=== PATIENT | female | born 1950 | race Caucasian/White ===

== ENCOUNTER 2021-08-24 17:00 | Inpatient (IN) | payer MEDICARE, MEDICAID, SELFPAY ==
[2021-08-24] VITALS (18 sets, daily range): BP systolic 102–169; BP diastolic 44–88; PULSE 48–106; RESP 12–23; TEMP 35.9–36.6; O2SAT 88–100
--- NOTE | ~2021-08-24 | CT_ITS ---
EXAMINATION: CT abdomen pelvis w con DATE: 08/24/2021 18:27 INDICATION: epigastric pain TECHNIQUE: Computed tomography (CT) of the abdomen and pelvis was performed with 100 mL Omnipaque-350 intravenous contrast. The dose-length product was 832.58 mGy-cm. COMPARISON: None FINDINGS: Lower thorax: Bibasilar atelectasis/scar Liver: Normal. Biliary/Gallbladder: Gallbladder is absent. No bile duct dilation. Spleen: Normal. Pancreas: No mass or duct dilation. Mild atrophy. Adrenals: 1.7 cm left adrenal mass, hyperdense measuring 90 HU. Kidneys: Punctate calcifications in the bilateral renal fossae, may represent vascular opacification or nonobstructive stones. No mass or hydronephrosis. GI tract: Gastric wall edema. Focal defect in the anterior gastric wall at the junction of the body a nd antrum. No small or large bowel dilation. Normal appendix. Mesentery/Peritoneum: Small volume perisplenic and perihepatic fluid. Inflammatory change in the uppe r mesentery. Small volume free air. Retroperitoneum: No mass. Pelvis: Pelvic organs are within normal limits. Small volume free pelvic fluid. Bones/Soft Tissues: Soft tissues and body wall unremarkable. Additional Findings: None. IMPRESSION: Perforated gastric ulcer, with small volume pneumoperitoneum and free fluid. Indeterminate 1.7 cm lef t adrenal mass, if there is no cancer history consider 12 month follow-up adrenal CT, otherwise recom mend nonemergent, outpatient adrenal CT when the patient's clinical condition permits. Dr. Escalante was aware of the acute findings at the time of this dictation. Reviewed, dictated and finalized at location K. IMPRESSION: Perforated gastric ulcer, with small volume pneumoperitoneum and free fluid. In determinate 1.7 cm left adrenal mass, if there is no cancer history consider 12 month follow-up adrenal CT, otherwise recommend nonemergent, outpatient adrena l CT when the patient's clinical condition permits. Dr. Escalante was aware of the acute findings at the time of this dictation.
--- NOTE | ~2021-08-24 | CT_ITS ---
EXAMINATION: CTA brain carotid DATE: 08/25/2021 13:48 INDICATION: Right hemiparesis. TECHNIQUE: Computed tomographic angiography (CTA) of the head was performed without and with 100 mL O mnipaque-350 intravenous contrast. CTA of the neck was performed with intravenous contrast. Automated exposure control and iterative reconstruction technique were employed. The dose-length product was 1 063.93 mGy-cm. Maximum intensity projection and volume rendered 3D-reconstructions were created by atif grimes technologist on a separate workstation. COMPARISON: Head CT/ FINDINGS: HEAD CTA: There are acute infarcts involving left temporal and parietal lobes. There are scattered ar eas of low attenuation in the cerebral white matter. There is no intracranial hemorrhage or abnormal mass lesion. The ventricles are normal in size. The orbits are normal. The paranasal sinuses are teresita r. There are bilateral mastoidectomies. Right vertebral artery is dominant. There is mild stenosis of distal right vertebral artery. There is mild stenosis of basilar artery. There is no significant satya nosis of the posterior cerebral arteries. There is total occlusion of left internal carotid artery wi th reconstitution in supraclinoid segment. There is no significant stenosis of the anterior cerebral arteries or right middle cerebral artery. Left A1 anterior cerebral artery segment is small. The is n o significant stenosis of left middle cerebral artery. Posterior communicating arteries are not ident ified. There is no aneurysm. NECK CTA: There is mild scarring at the lung apices. There is mild emphysema. There are no pathologic ally enlarged lymph nodes. There is long segment moderate stenosis of right vertebral artery. There i s total occlusion of mid left vertebral artery with reconstitution. There is moderate stenosis of rig ht common carotid artery. There is plaque in the proximal right internal carotid artery. There is 37% stenosis of the proximal right internal carotid artery relative to normal distal artery lumen diamet er (NASCET criteria). There is total occlusion of cervical left internal carotid artery. There is mil d cervical spondylosis. IMPRESSION: 1. 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 2. Mild nonspecific cerebral white matter disease, which likely represents chronic small vessel ische poncho disease. 3. 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 4. Moderate stenosis of right common carotid artery. 5. 37% stenosis of the proximal right internal carotid artery relative to normal distal artery lumen diameter (NASCET criteria). 6. Total occlusion of mid left vertebral artery with reconstitution. 7. Moderate stenosis of right vertebral artery. Reviewed, dictated and finalized at location B. IMPRESSION: 1. 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 2. 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 3. 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 4. Moderate stenosis of right common carotid artery. 5. 37% stenosis of the proximal right internal carotid artery relative to marlys l distal artery lumen diameter (NASCET criteria). 6. Total occlusion of mid left vertebral artery with reconstitution. 7. Moderate stenosis of right vertebral artery.
--- NOTE | ~2021-08-24 | CT_ITS ---
EXAMINATION: CT brain wo con DATE: 08/25/2021 12:01 INDICATION: Right hemiparesis. Neurological changes. TECHNIQUE: Computed tomography (CT) of the head was performed without intravenous contrast. The mA wa s adjusted according to patient size. Iterative reconstruction technique was employed. The dose-lengt h product was 756.67 mGy-cm. COMPARISON: Head CT 03/29/2017 FINDINGS: There is hypoattenuation involving monge matter in left temporal lobe, consistent with acute infarct. There are scattered areas of low attenuation in the cerebral white matter. There is no intr acranial hemorrhage or abnormal mass lesion. The ventricles are normal in size. The paranasal sinuses are clear. The orbits are normal. There are changes of mastoidectomies. IMPRESSION: 1. Acute infarct in left temporal lobe. 2. Mild nonspecific cerebral white matter disease, which likely represents chronic small vessel ische poncho disease. Reviewed, dictated and finalized at location B. IMPRESSION: 1. Acute infarct in left temporal lobe. 2. 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
--- NOTE | ~2021-08-24 | XR_ITS ---
EXAM: XR abdomen NG/feed tube insert HISTORY: NG TUBE INSERT COMPARISON: None available FINDINGS: Bibasilar atelectasis/scar, with chronic pleural blunting on the left. NG tube, tip in the stomach, side port at the GE junction. Cholecystomy clips. Paucity of bowel gas. IMPRESSION: High positioned NG tube, consider advancing approximately 5 cm. Reviewed, dictated and finalized at location K.
[2021-08-24 17:44] LABS: Basophils Absolute Auto 0.1 K/mm3 (0.0-0.1); Basophils Percent Auto 0.5 % (0.2-1.2); Eosinophils Absolute Auto 0.6 K/mm3 (0-0.3); Hematocrit 42.9 % (37.0-47.0); Hemoglobin 13.9 g/dL (12.0-15.0); Immature Granulocyte Absolute 0.05 K/mm3 (0.00-0.031); Immature Granulocyte Percent A 0.5 % (0-0.5); Lymphocytes Absolute Auto 1.08 K/mm3 (0.9-3.2); Lymphocytes Percent Auto 9.8 % (18.3-44.2); Mean Corpuscular HGB Conc 32.4 g/dl (32-36); Mean Corpuscular Volume 98.8 fl (80-100); Mean Platelet Volume 10.6 fl (7.4-10.4); Monocytes Absolute Auto 0.7 K/mm3 (0.1-0.6); Monocytes Percent Auto 6.3 % (2.6-8.5); Neutrophils Absolute Auto 8.6 K/mm3 (1.3-6.7); Neutrophils Percent Auto 77.9 % (45.5-73.1); Platelet Count Result 280 k/mm3 (150-375); Red Blood Count 4.34 M/mm3 (4.2-5.4); Red Cell Distribution Width 13.3 % (11.5-14.5); White Blood Count 11.1 K/mm3 (4.5-10.0)
[2021-08-24 17:53] LABS: Alanine Aminotransferase 17 U/L (4-35); Albumin Level 3.8 g/dL (3.5-5.1); Alkaline Phosphatase 97 U/L (38-126); Anion Gap 11 mmol/L (8-16); Aspartate Amino Transferase 30 U/L (14-36); Blood Urea Nitrogen 57 mg/dL (7-17); Calcium 9.2 mg/dL (8.4-10.2); Carbon Dioxide 24 mmol/L (22-30); Chloride 93 mmol/L (98-107); Estimated CRCL calculation 36 ml/min; Estimated Glomerular Filt Rate 41; Glucose 256 mg/dL (65-110); Lipase 94 U/L (23-300); Potassium 3.6 mmol/L (3.4-5.0); Sodium 128 mmol/L (137-145)
[2021-08-24] MEDS: SODIUM CHLORIDE 0.9% IV 1,000 ML 999 ML IV CONT (18:07)
[2021-08-24] MEDS: ONDANSETRON INJ 4 MG/2 ML VIAL IV PUSH (18:08)
[2021-08-24] MEDS: MORPHINE SULFATE (*CRX) 4 MG/ML INJ IV PUSH ×2 (18:08→19:29)
--- NOTE | 2021-08-24 18:23 | PC.NURSE ---
Patient to radiology.
--- NOTE | 2021-08-24 18:33 | ED.ABDPAIN ---
HPI - Abdominal Pain General Chief Complaint: Abdominal Pain Stated Complaint: Abdominal Pain Time Seen by Provider: 08/24/21 17:53 History of Present Illness HPI narrative: Patient is a 70-year-old female who presents ER with sudden onset abdominal pain. Began at 3 PM. Patient had been eating. Has history of cholecystectomy. Patient reports pain is sharp and diffuse. No alleviating factors. Worse with any type of movement or touch. She has been having some nausea and vomiting. No fevers or chills or sweats. No loss of consciousness. Does not take any anticoagulants or antiplatelet medication. Denies use of ibuprofen/NSAIDs habitually. Outside medication review however shows the patient filled naproxen 500 mg at the beginning of July and had a 90-day prescription with a total of 180 tabs. Related Data Allergies Allergy/AdvReac Type Severity Reaction Status Date / Time aspirin Allergy Unknown Hives / Verified 12/14/18 17:52 [place] hydrocodone Allergy Hives Verified 08/24/21 19:24 Review of Systems Review of Systems: All systems reviewed & are unremarkable except as noted in HPI and below Constitutional: Constitutional: Denies chills, Denies fever(s) and Denies weakness ENT: Denies nasal congestion and Denies sore throat Cardiovascular: Cardiovascular: Denies chest pain, Denies rapid heart rate and Denies radiating jaw, neck or arm pain Gastrointestinal: Gastrointestinal: Reports abdominal pain, Denies constipation, Denies diarrhea, Reports nausea and Reports vomiting Neurologic: Denies focal weakness and Denies numbness PMFSH Past Medical History Medical History (Updated 08/24/21 @ 19:26 by Geo Escalante MD) COPD (chronic obstructive pulmonary disease) Diabetes GERD (gastroesophageal reflux disease) Hypertension Peripheral vascular disease Surgical History Surgical History (Updated 08/24/21 @ 18:37 by Geo Escalante MD) History of cholecystectomy Social History Social History (Updated 08/24/21 @ 18:38 by Geo Escalante MD) Smoking status: Current every day smoker Exam Narrative: GENERAL: Uncomfortable-appearing, well-nourished, and in mild distress. HEAD: Normocephalic, atraumatic. EYES: PERRL and EOMI. ENT: Mucous membranes moist. CHEST: Clear to auscultation. No respiratory distress. HEART: Regular rate and rhythm. Normal peripheral pulses. ABDOMEN: Soft, diffuse tenderness with guarding worse in the epigastrium, normal active bowel sounds. EXTREMITIES: Normal range of motion. No edema. SKIN: Warm, dry, no rash. NEURO: Alert and oriented x3. PSYCH: Normal mood and affect. Course Course Emergency Course: Patient family informed of results. Discussed case with general surgery. They will take the patient to the OR tonight. Patient has received Protonix 80 mg IV and will receive Zosyn. She will remain n.p.o. Vital Signs Vital signs: Vital Signs Temperature 96.6 F L 08/24/21 17:30 Pulse Rate 106 H 08/24/21 17:30 Respiratory Rate 19 08/24/21 17:30 Blood Pressure 102/45 L 08/24/21 17:30 Pulse Oximetry 100 08/24/21 17:30 Temperature 96.6 F L 08/24/21 18:38 Pulse Rate 69 08/24/21 19:02 Respiratory Rate 19 08/24/21 19:02 Blood Pressure 136/73 08/24/21 19:02 Pulse Oximetry 94 08/24/21 19:02 MDM - Abdominal Pain Lab Data Result diagrams: 08/24/21 17:36 08/24/21 17:36 Labs: Lab Results 08/24/21 08/24/21 08/24/21 Range/Units 17:36 17:36 18:39 WBC 11.1 H (4.5-10.0) K/mm3 RBC 4.34 (4.2-5.4) M/mm3 Hgb 13.9 (12.0-15.0) g/dL Hct 42.9 (37.0-47.0) % MCV 98.8 (80-100) fl MCH 32.0 (26-34) pg MCHC 32.4 (32-36) g/dl RDW 13.3 (11.5-14.5) % Plt Count 280 (150-375) k/mm3 MPV 10.6 H (7.4-10.4) fl Immature Gran % (Auto) 0.5 (0-0.5) % Neut % (Auto) 77.9 H (45.5-73.1) % Lymph % (Auto) 9.8 L (18.3-44.2) % [place] % (Auto) 6.3 (2.6-8.5) % Eos
[2021-08-24] MEDS: PANTOPRAZOLE SODIUM IV 40 MG VIAL 80 MG IV PUSH (18:34)
--- NOTE | 2021-08-24 18:40 | PC.NURSE ---
EDP Boris aware patient cannot urinate at this time. Per EDP, okay to hold off on collection at this time.
[2021-08-24 18:55] LABS: Lactic Acid Reflex 2.1 mmol/L (0.7-2.1)
--- NOTE | 2021-08-24 20:20 | WPDANESEPPF ---
Anes - Initial Pre Proc Eval Procedure: Operation Date: 08/24/21 20:00 Proposed Procedures p Lap Repair of Gastric Ulcer - Clint Villafana DO Date/Time: 08/24/21 20:20 Surgeon: Clint Villafana DO Pre Op Diagnosis: Abdominal Pain Patient Data Age: 70 Gender: F Height: 1.63 m Weight: 74.8 kg Last Vital Signs Temp 35.9 C L 08/24/21 18:38 Pulse 72 08/24/21 20:17 Resp 20 08/24/21 20:17 BP 155/79 H 08/24/21 20:17 Pulse Ox 98 08/24/21 20:17 Allergies Allergy/AdvReac Type Severity Reaction Status Date / Time aspirin Allergy Unknown Hives / Verified 12/14/18 17:52 [place] hydrocodone Allergy Hives Verified 08/24/21 19:24 Laboratory Tests 08/24/21 08/24/21 08/24/21 17:36 17:36 18:39 WBC 11.1 K/mm3 H K/mm3 (4.5-10.0) RBC 4.34 M/mm3 M/mm3 (4.2-5.4) Hgb 13.9 g/dL g/dL (12.0-15.0) Hct 42.9 % % (37.0-47.0) MCV 98.8 fl fl (80-100) MCH 32.0 pg pg (26-34) MCHC 32.4 g/dl g/dl (32-36) RDW 13.3 % % (11.5-14.5) Plt Count 280 k/mm3 k/mm3 (150-375) MPV 10.6 fl H fl (7.4-10.4) Immature Gran % (Auto) 0.5 % % (0-0.5) Neut % (Auto) 77.9 % H % (45.5-73.1) Lymph % (Auto) 9.8 % L % (18.3-44.2) [place] % (Auto) 6.3 % % (2.6-8.5) Eos % (Auto) 5.0 % H % (0-4.4) Baso % (Auto) 0.5 % % (0.2-1.2) Lymph # (Auto) 1.08 K/mm3 K/mm3 (0.9-3.2) [place] # (Auto) 0.7 K/mm3 H K/mm3 (0.1-0.6) Eos # (Auto) 0.6 K/mm3 H K/mm3 (0-0.3) Baso # (Auto) 0.1 K/mm3 K/mm3 (0.0-0.1) Abs Immat Gran (auto) 0.05 K/mm3 H K/mm3 (0.00-0.031) Absolute Neuts (auto) 8.6 K/mm3 H K/mm3 (1.3-6.7) Absolute Nucleated RBC 0.0 K/mm3 K/mm3 (0.0-0.012) Nucleated RBC % 0.0 % % (0.0-0.2) Sodium 128 mmol/L L mmol/L (137-145) Potassium 3.6 mmol/L mmol/L (3.4-5.0) Chloride 93 mmol/L L mmol/L (98-107) Carbon Dioxide 24 mmol/L mmol/L (22-30) Anion Gap 11 mmol/L mmol/L (8-16) BUN 57 mg/dL H mg/dL (7-17) Creatinine 1.30 mg/dL H mg/dL (0.7-1.0) Estim Creat Clear Calc 36 ml/min ml/min Estimated GFR 41 L (59 - ) Glucose 256 mg/dL H mg/dL (65-110) Lactic Acid 2.1 mmol/L mmol/L (0.7-2.1) Calcium 9.2 mg/dL mg/dL (8.4-10.2) Total Bilirubin 1.0 mg/dL mg/dL (0.2-1.3) AST 30 U/L U/L (14-36) ALT 17 U/L U/L (4-35) Alkaline Phosphatase 97 U/L U/L (38-126) Total Protein 6.0 g/dL L g/dL (6.3-8.2) Albumin 3.8 g/dL g/dL (3.5-5.1) Lipase 94 U/L U/L (23-300) Patient hx anesthesia problems: none Family hx anesthesia problems: none Results Review: All pre-operative results and documents have been reviewed as part of the pre-operative evaluation. [facility] Past Medical History Medical History COPD (chronic obstructive pulmonary disease) Diabetes GERD (gastroesophageal reflux disease) Hypertension Peripheral vascular disease Surgical History Surgical History History of cholecystectomy Social History Social History Smoking status: Current every day smoker Anes - Eval Final PreProcedure Day of Procedure 08/24/21 20:20 Patient weight: overweight Heart: regular rate and rhythm Lungs: clear to auscultation Airway: Mallampati scale class II Neurological: alert and oriented Last oral intake: >/= 8 hours ASA classification: III Emergent: yes Anesthetic plan: proceed Anesthesia type and monitoring: general ETT and standard monitoring Results Review: All pre-operative results and documents have been reviewed as p
--- NOTE | 2021-08-24 20:22 | PM.IMHP ---
H&P: HPI History of Present Illness Date/Time: 08/24/21 20:22 Chief Complaint: Acute abdominal pain Narrative: This is a 70-year-old woman who presented to the emergency department today with acute abdominal pain that started around 3:00 p.m. today. She has been experiencing some nausea and vomiting for the past several days but denied any significant abdominal pain associated with this. She was moving her bowels but this has been a little slower. She takes naproxen for chronic back pain and used to be a smoker but quit 2 months ago. She denies any significant alcohol use. She has never experienced pain like this in the past and she denies any significant history of acid reflux or heartburn. Review of Systems Review of Systems: All systems reviewed & are unremarkable except as noted in HPI and below Constitutional: Constitutional: Denies chills and Denies fever(s) Eyes: Eyes: Denies change in vision ENT: Denies hearing loss, Denies neck pain and Denies sore throat Cardiovascular: Cardiovascular: Denies chest pain and Denies dyspnea Respiratory: Respiratory: Denies cough, Denies dyspnea and Denies wheezing Gastrointestinal: Gastrointestinal: Reports as per HPI Genitourinary: Genitourinary: Denies hematuria and Denies dysuria Musculoskeletal: Musculoskeletal: Denies arthralgias, Denies joint swelling and Denies neck pain Allergic/Immunologic: Allergic/Immunologic: Denies wheezing PMFSH Past Medical History Medical History COPD (chronic obstructive pulmonary disease) Diabetes GERD (gastroesophageal reflux disease) Hypertension Peripheral vascular disease Surgical History Surgical History History of cholecystectomy Family History Family History (Updated 08/24/21 @ 20:26 by Clint Villafana DO) Other No significant family history Social History Social History Smoking status: Current every day smoker Meds Home Medications and Allergies Allergies Allergy/AdvReac Type Severity Reaction Status Date / Time aspirin Allergy Unknown Hives / Verified 12/14/18 17:52 Red Face hydrocodone Allergy Hives Verified 08/24/21 19:24 Vital Signs Vital Signs - 24 hr 08/24/21 17:30 08/24/21 18:06 08/24/21 18:08 Temperature 35.9 C L Pulse Rate 106 H 48 L 50 L Respiratory Rate 19 23 H 12 Blood Pressure 102/45 L 127/88 Pulse Oximetry 100 94 97 08/24/21 18:38 08/24/21 19:02 08/24/21 19:33 Temperature 35.9 C L Pulse Rate 69 69 Respiratory Rate 19 20 Blood Pressure 136/73 153/61 H Pulse Oximetry 94 95 08/24/21 19:35 08/24/21 19:36 08/24/21 20:17 Temperature Pulse Rate 72 Respiratory Rate 20 Blood Pressure 155/79 H Pulse Oximetry 88 L 96 98 Exam Const: General: alert; No acute distress Orientation/consciousness: patient oriented x3 Limitations: no limitations HENMT: Head: normocephalic and atraumatic Ears: hearing grossly normal bilaterally General nose exam: Normal external nose present and Normal nares present Mouth: Yes Normal oral and palatal mucosa present and Yes moist mucous membranes Eyes: General: appearance normal, both eyes and all related structures Conjunctivae: conjunctivae normal Sclera: sclerae normal Pupils: Equal, round and reactive pupils present EOM: EOMs intact bilaterally Neck: Neck: normal visual inspection, full ROM, no lymphadenopathy, supple and no JVD Lymphatic: no lymphadenopathy noted Chest: Chest palpation & inspection: normal inspection of the chest Resp: Effort & Inspection: normal respiratory effort and able to speak in complete sentences Auscultation: clear to auscultation bilaterally Percussion: percussion normal Cardio: Jugular venous distension: no JVD Rate: regular rate Rhythm: regular rhythm Heart sounds: S1 normal heart sound present and S2 normal
--- NOTE | 2021-08-24 20:29 | WPDHPUPDATE1 ---
History and Physical Update Update Date/Time: 08/24/21 20:29 History and Physical has been reviewed, including an updated exam of the patient. There are NO changes in the patient's condition. Risks, benefits, and alternatives have been discussed and questions answered. Patient agrees to proceed with procedure.
[2021-08-24 21:43] LABS: Reflex Lactic Acid Yes or No Add Lactic
[2021-08-24] MEDS: LACTATED RINGERS 1,000 ML 30 ML IV CONT ×2 (21:48)
--- NOTE | 2021-08-24 21:53 | W.PM.PROC2 ---
Procedure Note - Detailed Date of Procedure 08/24/21 Pre-op Diagnosis Acute epigastric abdominal pain, perforated gastric ulcer Post-op Diagnosis Same Procedure Performed 1. Laparoscopic repair of perforated gastric ulcer with omental Jude patch 2. Laparoscopic drainage of intra-abdominal abscess Surgeon Clint Villafana, DO Anesthesia General and Local (0.5% bupivacaine with epinephrine) Indications This is a 70-year-old woman who [facility] with acute onset of epigastric abdominal pain that started around 3:00 p.m. today. She had been having some nausea and vomiting for several days leading up to this, but did not have any other complaints. She has never experienced anything like this before. She has been on naproxen for chronic back pain for about 2 years. She was also previously a smoker but stated that she quit about [address] in the emergency department showed evidence of likely perforated gastric ulcer with free air and free fluid. She had a slightly elevated white blood count 11.1 but is otherwise hemodynamically stable. She was started on broad-spectrum IV antibiotics and decision was made to proceed with emergency laparoscopic repair of perforated gastric ulcer, possible open. Findings Upon inspecting the abdominal cavity laparoscopically, there was clear evidence of a perforation on the anterior distal antrum. There was some gastric contents throughout the upper abdomen with staining on the liver and omentum. The perforated ulcer was closed using 2-0 Vicryl simple interrupted sutures. After irrigating the abdomen with about 3 L of sterile saline, I then performed the omental Jude patch using 0 silk suture. I then placed a 15 round Suresh drain through the right upper quadrant port site and advance this down into the pelvis. I then also placed a 19 round Suresh drain through the left upper quadrant port site and advanced this across the upper abdomen across the area of perforation and under the liver edge. Description of Procedure Procedure as well as risks, benefits, and alternatives were discussed with the patient. Written consent was obtained and placed in chart prior to procedure. Patient was brought back to surgical suite. She was placed supine on operating table. Time-out was done to confirm patient and procedure. She was then intubated by the anesthesia department. Her abdomen was then prepped and draped in sterile fashion using chlorhexidine prep. A 5 mm incision was made just superior and to the left of the umbilicus using a 15 blade scalpel. 5 mm Optiview trocar was then advanced through the abdominal layers under direct visualization. Once inside the abdominal cavity, carbon dioxide insufflation was used to create a pneumoperitoneum. The camera was inserted and the abdominal cavity was carefully inspected. The patient was placed in reverse Trendelenburg position. A 5 mm incision was made in the left upper quadrant and a 5 mm trocar was inserted under direct visualization. 5 mm and 11 mm incision was made in the upper abdomen just to the right of midline and a 5 mm 11 mm port were then placed under direct visualization. Carefully inspected the abdominal cavity and identify the area of perforation. A suction machine operators was used to carefully suction any of the gastric contents that had spilled. 2-0 Vicryl simple interrupted sutures were then placed across the perforation to close the perforation on the anterior gastric antrum. Two sutures appeared to adequately approximate the perforation and no further spillage was noted. The area was then irrigated with sterile saline and no other abnormalities were noted. An area of omentum was identified to bring up to the stomach to patch over the repair. The omentum was secured over the perforation using 0 silk simple interrupted sutures. The omentum appeared to be adequately covering the area of perforation. I then identified more gastric content
--- NOTE | 2021-08-24 22:18 | SUR.PHASEI ---
[id number] - dr. vu alvaradoed to use ng for low intermittent suction
--- NOTE | 2021-08-24 23:27 | ADMGEN ---
This patient, Marjan Gee, was admitted to IMU Room 213-01 on 08/24/21 at 2312 from PACU. Report received from [employer], Alyssa. Patient/family oriented to hospital policies and general routines including ID bracelet, bed and alarms, visiting hours, pain management, procedures, bathroom and other care routines, personal items, smoking policy, room service/diet, and visiting hours. Information on how to activate the Rapid Response Team has been discussed. Patient/Family are encouraged to report perceived risks to care and to ask questions if they do not understand what they are told or what they should do.
[2021-08-25] VITALS (13 sets, daily range): BP systolic 108–143; BP diastolic 38–46; PULSE 49–72; RESP 12–18; TEMP 36.2–36.9; O2SAT 95–100; BMI 30.9
[2021-08-25] LABS: Lactic Acid 1.8 mmol/L (0.7-2.1)
[2021-08-25] MEDS: LACTATED RINGERS 1,000 ML 100 ML IV CONT ×2 (00:57→11:38)
[2021-08-25] MEDS: MICAFUNGIN SODIUM 100 MG in SODIUM CHLORIDE 0.9% IV 100 ML IVPB (01:03)
--- NOTE | 2021-08-25 03:02 | PM.IMCN ---
Assessment and Plan Assessment and plan (1) Perforated gastric ulcer: Qualifiers: Gastric ulcer chronicity: acute Qualified Code(s): K25.1 - Acute gastric ulcer with perforation Code(s): K25.5 - Chronic or unspecified gastric ulcer with perforation Status: Acute (2) NSAID long-term use: Code(s): Z79.1 - intermediate (current) use of non-steroidal anti-inflammatories (NSAID) Status: Acute (3) Type 2 diabetes mellitus with hyperglycemia: Qualifiers: Diabetes mellitus custodial insulin use: without superintendent marine oil terminal use Qualified Code(s): E11.65 - Type 2 diabetes mellitus with hyperglycemia Code(s): E11.65 - Type 2 diabetes mellitus with hyperglycemia Status: Acute (4) COPD (chronic obstructive pulmonary disease): Qualifiers: COPD type: unspecified COPD Qualified Code(s): J44.9 - Chronic obstructive pulmonary disease, unspecified Code(s): J44.9 - Chronic obstructive pulmonary disease, unspecified Status: Acute (5) Continuous tobacco abuse: Code(s): Z72.0 - Tobacco use Status: Acute Additional Plan Patient underwent repair of perforated gastric ulcer due to long-term NSAID use. Patient is NPO and has NG tube in place with management per primary service. Pain management per primary service. Patient does have type 2 diabetes mellitus and has current hyperglycemia likely due to a component of stress reaction given recent events. The patient is NPO. Her home oral medications are on hold. Will place patient on moderate sliding scale insulin with Accu-Cheks q.6 hours. Hypoglycemia protocol has been ordered. The patient does have chronic COPD chronic tobacco use. Will place patient on scheduled nebulizers q.6 hours per home regimen. Encourage incentive spirometry. Tobacco cessation was encouraged. Nicotine patch will be provided as needed. HPI Data of Consult Consult date: 08/25/21 Requesting Physician: Clint Villafana DO Primary Care Provider: Sajan Nunez, PA Consult Narrative Narrative: Marjan Gee is a 70 year old female with a past medical history of peripheral vascular disease, type 2 diabetes mellitus, GERD, hypertension, hyperlipidemia, COPD and chronic back pain who presented to the ER with abdominal pain. The patient had sudden onset of abdominal pain around 3:00 p.m. while eating. Pain was sharp and diffuse with some associated nausea and vomiting. She has been taking naproxen consistently for several months due to chronic back pain. Imaging in the ER demonstrated perforated gastric ulcer with small volume of pneumoperitoneum and free fluid with indeterminate 1.7 cm left adrenal mass. The patient went for immediate surgical repair. Intraoperatively was noted the patient had clear evidence of perforation of the anterior distal antrum of the stomach with some gastric contents throughout the upper abdomen with staining on the liver and omentum. Patient had some gastric contents in the left upper quadrant and some gastric contents even extending down into the pelvis. Ulcer was repaired with an omental patch and gastric contents were suctioned out and a drain was placed. Patient required 2 doses of norepinephrine throughout the surgical procedure. At the time of my evaluation the patient would stare blankly at me. She would intermittently follow commands such as open her mouth. She was not speaking to me. She did not seem to be any overt distress. Her vital signs were stable. Her abdomen was mildly tender to palpation. Bowel sounds were present. She had some drainage from her drains that was minimal in amount cloudy in color. She is hyperglycemic at this time. Nursing staff had to use Doppler ultrasound to identify the patient's pedal pulses. The entirety of history was obtained from review of past medical records and nursing report. Review of Systems Review of Systems: ROS unobtainable: Yes unobtainable d
[2021-08-25 04:19] LABS: Glucose Point of Care 277 mg/dl (65-105)
[2021-08-25] MEDS: INSULIN ASPART (*BKC) 100 UNITS/ML SUB-Q ×3 (04:40→15:58)
[2021-08-25 04:59] LABS: Hematocrit 37.4 % (37.0-47.0); Hemoglobin 12.4 g/dL (12.0-15.0); Mean Corpuscular HGB Conc 33.2 g/dl (32-36); Mean Corpuscular Hemoglobin 31.9 pg (26-34); Mean Corpuscular Volume 96.1 fl (80-100); Mean Platelet Volume 10.6 fl (7.4-10.4); Platelet Count Result 226 k/mm3 (150-375); Red Blood Count 3.89 M/mm3 (4.2-5.4); Red Cell Distribution Width 13.4 % (11.5-14.5); White Blood Count 13.3 K/mm3 (4.5-10.0)
[2021-08-25 05:18] LABS: Anion Gap 7 mmol/L (8-16); Blood Urea Nitrogen 47 mg/dL (7-17); Calcium 8.2 mg/dL (8.4-10.2); Carbon Dioxide 22 mmol/L (22-30); Chloride 99 mmol/L (98-107); Estimated CRCL calculation 46 ml/min; Estimated Glomerular Filt Rate 49; Glucose 276 mg/dL (65-110); Potassium 4.1 mmol/L (3.4-5.0); Sodium 128 mmol/L (137-145)
[2021-08-25 06:05] LABS: Appearance Urine Clear (Clear); Bilirubin Urine Negative (Negative); Blood Urine Negative (Negative); Color Urine Yellow (Yellow); Glucose Urine UA 3+ mg/dL (Negative); Ketones Urine Negative (Negative); Leukocyte Esterase Ur Negative LEU/UL (Negative); Nitrate Urine Negative (Negative); Protein Urine Negative (Negative); Urobilinogen Urine 0.2 mg/dL (<2.0); pH Urine 5.5 (5.0-9.0)
[2021-08-25 06:10] LABS: Bacteria Urine Trace /hpf; Mucus Urine Rare /lpf; RBC Urine 0-2 /hpf (0-2); WBC Urine 0-3 /hpf
[2021-08-25 06:23] LABS: Add Urine Microscopic? YES
[2021-08-25] MEDS: FLUTICASONE/SALMETEROL 115-21 MCG INHALER 1 PUFF 2 PUFF INHALATION (08:02)
[2021-08-25] MEDS: ALBUTEROL SULFATE NEB 2.5 MG/3 ML INH INHALATION (08:02)
[2021-08-25] MEDS: ENOXAPARIN 40 MG/0.4 ML SYRINGE SUB-Q (08:37)
[2021-08-25] MEDS: FLUTICASONE PROPIONATE 0.05% NA SPR 16 GM BTL (*BKC) 1 SPRAY NASAL (08:38)
[2021-08-25 10:17] LABS: Glucose Point of Care 255 mg/dl (65-105)
--- NOTE | 2021-08-25 11:57 | PM.PNGS ---
Progress Note: A&P Assessment and Plan (1) Perforated gastric ulcer: Qualifiers: Gastric ulcer chronicity: acute Qualified Code(s): K25.1 - Acute gastric ulcer with perforation Code(s): K25.5 - Chronic or unspecified gastric ulcer with perforation Status: Acute Assessment and Plan: Continue NG tube, NPO, and IV fluids. Continue IV Zosyn and IV Micafungin Continue Protonix drip Monitor DAYNE drains (2) Acute cerebral infarction: Code(s): I63.9 - Cerebral infarction, unspecified Status: Acute Assessment and Plan: Right-sided focal weakness and altered mental status on my exam, which was discussed with the Hospitalist. Stat CT brain ordered and showing acute infarct in the left temporal lobe. Daughter mentions outpatient workup for carotid stenosis, she believes left-sided. Okay from our standpoint to give rectal aspirin. Would not be a candidate for TPA with recent surgery. Medical management per Hospitalist. (3) NSAID long-term use: Code(s): Z79.1 - shipping helper (current) use of non-steroidal anti-inflammatories (NSAID) Status: Acute Additional Plan I have discussed the patient's case and plan of care with Dr. Villafana. Subjective Subjective Date/Time Seen: 08/25/21 11:57 Post Op day: 1 (Lap repair of perforated gastric ulcer with omental Jude patch, lap drainage of intra-abdominal abscess) Patient reports: afebrile Interval history: Patient seen and examined this morning with her daughter at bedside. Upon entering the room, the patient was obtunded. She was not arousable to name, but did open her eyes with sternal stimulation. She would not track or follow commands. She would not nod yes or no to any questions and was completely nonverbal. The patient's daughter is at the bedside and stated that she has been sleeping all morning and would open her eyes but has not been talking to them or been able to answer any questions this morning. Per nursing, she was able to move all four extremities and follow commands on her assessment around 9:00 am. Review of Systems Review of Systems: ROS unobtainable: Yes unobtainable due to mental status Exam Const: General: patient obtunded Nutritional Appearance: overweight Orientation/consciousness: patient obtunded Resp: Effort & Inspection: normal respiratory effort Auscultation: clear to auscultation bilaterally Cardio: Rate: regular rate Rhythm: regular rhythm GI: Inspection: non-distended, incision (Abdominal incisions dry and intact) and other (LUQ DAYNE espinoza/brown cloudy output, RUQ DAYNE drain cloudy yellow/espinoza output) GI Palp: Yes Soft to palpation and Yes Other GI palpation findings present (exam limited d/t patient's mental status) Auscultation: absent bowel sounds Skin: General skin exam: normal color Neuro: General: patient obtunded and Unable to assess gait Cranial nerves: Yes Other cranial nerve findings present (left eyelid droop) Speech: Other speech findings present (Neuro) (nonverbal) Motor exam (neuro): Other motor observations present (Right upper and lower extremity flaccid) Coordination: other (not able to follow commands, no eye tracking) Pupils: Normal pupillary reactivity/response: bilateral Extrem: General: no clubbing, cyanosis or edema Psych: Insight: Limited insight present (Psych) and Poor insight present (Psych) Judgement: Limited judgement present (Psych) and Poor judgement present (Psych) Objective Data Vital Signs Vital Signs: Vital Signs - 24 hr 08/24/21 17:30 08/24/21 18:06 08/24/21 18:08 Temperature 96.6 F L Pulse Rate 106 H 48 L 50 L Respiratory Rate 19 23 H 12 Blood Pressure 102/45 L 127/88 Pulse Oximetry 100 94 97 08/24/21 18:38 08/24/21 19:02 08/24/21 19:33 Temperature 96.6 F L Pulse Rate 69 69 Respiratory Rate 19 20 Blood Pressure 136/73 153/61 H Pulse Oximetry 94 95 08/24/21 19:35 08/24/21 19:36 08/24/21 20:17 Temperature Pulse Rate 72 Resp
--- NOTE | 2021-08-25 12:20 | PC.NURSE ---
0845-pt assessed. Pt sleepy and will wake to voice or touch. pt is not following commands at this time and not verbally responding, but moving all 4 extremities purposefully. pt repositioned with savita Holcomb, and pt able to grab rails with turning. when speaking with pt, pt does look to the side that the person is speaking. SCOTT. 0900-Dr. Baez at bedside. Updated to pt being sleepy and non-verbal, but moves all extremities. 1030-pt assessed. Pt remains sleepy, but was able squeeze fingers using bilateral hands. Pt still non-verbal. Updated Dr. Quach that pt followed commands, but remains sleepy and non-verbal.
--- NOTE | 2021-08-25 12:32 | PC.NURSE ---
1130-TRACE Vaughn, entered pt's room. Eusebia informed RN that pt is now flaccid on RUE. Eusebia informed Dr. Quach and RN. Upon assessment, pt noted to be flaccid on RUE and noted rt sided neglect. Pt does withdrawl to pain on RLE. Pupils are sluggish to light. Family at bedside. 1145-pt for stat CT with RN. 1200-pt back to 213. 1210-Dr. Quach called and updated to CT results.
--- NOTE | 2021-08-25 13:10 | PM.IMPN ---
Progress Note: A&P Assessment and Plan (1) Acute cerebral infarction: Code(s): I63.9 - Cerebral infarction, unspecified Status: Acute Assessment and Plan: Notified by nursing patient still was poorly responsive since surgery. Given the findings on neurologic exam, patient underwent stat CT of the brain which showed acute left temporal CVA. Patient is allergic to aspirin. Difficult to perform stroke scale given her altered mental status. Neurologic exam is reviewed from the nurse's notes. Patient's speech was clear and appropriate through 4:00 a.m. this morning. Her [place] coma Scale was 14. Appears to have a change in assessment at the 8:00 a.m. assessment this morning with aphasia and GCS 9. RN does note that patient following commands at 1030am. Spoke with [place] neurology (Dr Self) who recommended stat CTA of the head neck to exclude large vessel thrombus. This has been ordered. Family has been updated. Neuro consult. CTA showin. 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 2. Mild nonspecific cerebral white matter disease, which likely represents chronic small vessel ischemic disease. 3. 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 4. Moderate stenosis of right common carotid artery. 5. 37% stenosis of the proximal right internal carotid artery relative to normal distal artery lumen diameter (NASCET criteria). 6. Total occlusion of mid left vertebral artery with reconstitution. 7. Moderate stenosis of right vertebral artery. Awaiting a return call from [place]. (2) Perforated gastric ulcer: Qualifiers: Gastric ulcer chronicity: acute Qualified Code(s): K25.1 - Acute gastric ulcer with perforation Code(s): K25.5 - Chronic or unspecified gastric ulcer with perforation Status: Acute Assessment and Plan: Patient presents with severe abdominal pain. CT showed perforated gastric ulcer with small volume of pneumoperitoneum and free fluid. Patient was seen and admitted by general surgery. Patient underwent laparoscopic repair of perforated gastric ulcer with omental Jude patch and drainage of intra-abdominal abscess. Two drains remain in place. Will hold morphine at this time given the change in mental status so as not to confuse the neurologic picture. Her last dose of morphine was last evening. (3) Hypertension: Code(s): I10 - Essential (primary) hypertension Status: Inactive Assessment and Plan: Patient takes losartan at home but held. Blood pressure reviewed and is stable. Losartan remains on hold. (4) NSAID long-term use: Code(s): Z79.1 - halfway (current) use of non-steroidal anti-inflammatories (NSAID) Status: Acute Assessment and Plan: Patient has been taking naproxen consistently for several months due to chronic back pain which most likely resulted in the gastric ulcer. (5) Type 2 diabetes mellitus with hyperglycemia: Qualifiers: Diabetes mellitus care home insulin use: without medical terminologist use Qualified Code(s): E11.65 - Type 2 diabetes mellitus with hyperglycemia Code(s): E11.65 - Type 2 diabetes mellitus with hyperglycemia Status: Acute Assessment and Plan: The patient's blood glucose was reviewed on 08/25 Glucose remains poorly controlled. Continue AccuCheks covering with sliding scale. Hypoglycemia protocol available as needed. Home medications are hold. Add Lantus. Check A1c. (6) COPD (chronic obstructive pulmonary disease): Qualifiers: COPD type: unspecified COPD Qualified Code(s): J44.9 - Chronic obstructive pulmonary disease, unspecified Code(s): J44.9 - Chronic obstructive pulmonary disease, unspecified Status: Acute Assessment and Plan: No active wheezing. Currently on 1 L. Will hold her Advair and albuterol. (7) Continuous tobacco abuse: Code(s): Z72.0
--- NOTE | 2021-08-25 13:48 | WPDANESPN ---
Anes - Prog Note Post-Op Date/Time: 08/25/21 13:48 Cardiovascular status: normal Respiratory status: normal Airway patency: baseline Vital Signs: Last Vital Signs Temp 98.4 F 08/25/21 12:00 Pulse 71 08/25/21 12:00 Resp 16 08/25/21 12:00 BP 120/38 L 08/25/21 12:00 Pulse Ox 98 08/25/21 12:00 Pain Score (VAS): 0 I/O: Intake & Output 08/24/21 08/25/21 08/25/21 23:59 07:59 15:59 Intake Total 2516 109 5754 Output Total 240 556 60 Balance 1010 -206 1440 Laboratory Tests 08/25/21 04:50 08/25/21 04:50 08/24/21 08/24/21 08/24/21 17:36 17:36 18:39 WBC 11.1 H RBC 4.34 Hgb 13.9 Hct 42.9 MCV 98.8 MCH 32.0 MCHC 32.4 RDW 13.3 Plt Count 280 MPV 10.6 H Immature Gran % (Auto) 0.5 Neut % (Auto) 77.9 H Lymph % (Auto) 9.8 L Collier % (Auto) 6.3 Eos % (Auto) 5.0 H Baso % (Auto) 0.5 Lymph # (Auto) 1.08 Collier # (Auto) 0.7 H Eos # (Auto) 0.6 H Baso # (Auto) 0.1 Abs Immat Gran (auto) 0.05 H Absolute Neuts (auto) 8.6 H Absolute Nucleated RBC 0.0 Nucleated RBC % 0.0 Sodium 128 L Potassium 3.6 Chloride 93 L Carbon Dioxide 24 Anion Gap 11 BUN 57 H Creatinine 1.30 H Estim Creat Clear Calc 36 Estimated GFR 41 L Glucose 256 H POC Capillary Glucose Lactic Acid 2.1 Calcium 9.2 Total Bilirubin 1.0 AST 30 ALT 17 Alkaline Phosphatase 97 Total Protein 6.0 L Albumin 3.8 Lipase 94 Urine Color Urine Appearance Urine pH Ur Specific [place] Urine Protein Urine Glucose (UA) Urine Ketones Ur Blood (Man) Urine Nitrate Urine Bilirubin Urine Urobilinogen Leukocyte Esterase Rfl Urine RBC Urine WBC Urine Bacteria Urine Mucus 08/24/21 08/25/21 08/25/21 23:37 03:47 04:50 WBC 13.3 H RBC 3.89 L Hgb 12.4 Hct 37.4 MCV 96.1 MCH 31.9 MCHC 33.2 RDW 13.4 Plt Count 226 MPV 10.6 H Immature Gran % (Auto) Neut % (Auto) Lymph % (Auto) Collier % (Auto) Eos % (Auto) Baso % (Auto) Lymph # (Auto) Collier # (Auto) Eos # (Auto) Baso # (Auto) Abs Immat Gran (auto) Absolute Neuts (auto) Absolute Nucleated RBC Nucleated RBC % Sodium Potassium Chloride Carbon Dioxide Anion Gap BUN Creatinine Estim Creat Clear Calc Estimated GFR Glucose POC Capillary Glucose 277 H Lactic Acid 1.8 Calcium Total Bilirubin AST ALT Alkaline Phosphatase Total Protein Albumin Lipase Urine Color Urine Appearance Urine pH Ur Specific [place] Urine Protein Urine Glucose (UA) Urine Ketones Ur Blood (Man) Urine Nitrate Urine Bilirubin Urine Urobilinogen Leukocyte Esterase Rfl Urine RBC Urine WBC Urine Bacteria Urine Mucus 08/25/21 08/25/21 08/25/21 04:50 05:14 10:16 WBC RBC Hgb Hct MCV MCH MCHC RDW Plt Count MPV Immature Gran % (Auto) Neut % (Auto) Lymph % (Auto) Collier % (Auto) Eos % (Auto) Baso % (Auto) Lymph # (Auto) Collier # (Auto) Eos # (Auto) Baso # (Auto) Abs Immat Gran (auto) Absolute Neuts (auto) Absolute Nucleated RBC Nucleated RBC % Sodium 128 L Potassium 4.1 Chloride 99 Carbon Dioxide 22 Anion Gap 7 L BUN 47 H D Creatinine 1.10 H Estim Creat Clear Calc 46 Estimated GFR 49 L Glucose 276 H POC Capillary Glucose 255 H Lactic Acid Calcium 8.2 L Total Bilirubin AST ALT Alkaline Phosphatase Total Protein Albumin Lipase Urine Color Yellow Urine Appearance Clear Urine pH 5.5 Ur Specific [place] 1.010 Urine Protein Negative Urine Glucose (UA) 3+ H Urine Ketones Negative Ur Blood (Man) Negative Urine Nitrate Negative Urine Bilirubin Negative Urine Urobilinogen 0.2 Leuk
[2021-08-25 15:40] LABS: Glucose Point of Care 220 mg/dl (65-105)
--- NOTE | 2021-08-25 15:55 | PC.NURSE ---
1300-pt to CT with RN for stat CTA
--- NOTE | 2021-08-25 16:38 | PC.NURSE ---
1630-EMS at bedside to transfer pt to [facility]. Report given to EMS. Family at bedside.
--- NOTE | 2021-08-25 16:46 | PC.NURSE ---
1630-Both peripheral IVs in place during transport.
--- NOTE | 2021-08-27 16:21 | PM.TDS ---
Transfer Discharge Sum: Prov Provider Date of admission: 08/24/21 23:01 Primary care physician: Sajan Nunez, PA Admitting clinician: Clint Villafana DO Attending physician on admission: Clint Villafana Consults: 08/24/21 23:01 Consult to Physician Routine Comment: Dr. Quintana made aware of consult Consulting Provider: Rona Quintana limousine and hearse upholsterer/MD group to consult: Dr. Quach Reason for consultation: COPD, Peripheral vasc disease, perforated gastric ulcer Has provider been notified: Yes 08/25/21 14:48 Consult to Physician Routine Comment: Called Dr and notified him of consult Consulting Provider: Romero Wood limousine and hearse upholsterer/MD group to consult: neuro Reason for consultation: CVA Has provider been notified: Yes Attending physician on discharge: Clint Villafana Discharging clinician: Johana Mary Anticipated date of transfer: 08/25/21 Receiving physician/facility: Dr. Self, Neurologist, at [facility] DS: Admitting Diagnosis Discharge Date 08/25/21 Admitting Diagnosis Perforated gastric ulcer Acute epigastric abdominal pain Long-term NSAID use DS: Discharge Diagnosis Discharge Diagnosis (1) Acute cerebral infarction: Code(s): I63.9 - Cerebral infarction, unspecified Status: Acute (2) Perforated gastric ulcer: Qualifiers: Gastric ulcer chronicity: acute Qualified Code(s): K25.1 - Acute gastric ulcer with perforation Code(s): K25.5 - Chronic or unspecified gastric ulcer with perforation Status: Acute (3) NSAID long-term use: Code(s): Z79.1 - exterminator (current) use of non-steroidal anti-inflammatories (NSAID) Status: Acute Transfer Discharge Sum: Med Medications Active and Home Medications: Home Medications albuterol sulfate 2 puff INHALATION TID PRN 08/24/21 [History Confirmed 08/24/21] albuterol sulfate 2.5 mg INHALATION TID 08/24/21 [History Confirmed 08/24/21] bupropion HCl 300 mg PO DAILY 08/24/21 [History Confirmed 08/24/21] dapagliflozin [Farxiga] 10 mg PO DAILY 08/24/21 [History Confirmed 08/24/21] fluticasone propionate 1 spray INTRANASAL BID 08/24/21 [History Confirmed 08/24/21] budesonide-formoterol [Symbicort] 2 puff INHALATION BID 08/25/21 [History Confirmed 08/25/21] cyclosporine [Restasis] 1 drp EACH EYE BID 08/25/21 [History Confirmed 08/25/21] gabapentin 600 mg PO TID 08/25/21 [History Confirmed 08/25/21] glimepiride 4 mg PO QAM 08/25/21 [History Confirmed 08/25/21] loratadine 10 mg PO QAM 08/25/21 [History Confirmed 08/25/21] losartan 100 mg PO DAILY 08/25/21 [History Confirmed 08/25/21] naproxen 500 mg PO BID 08/25/21 [History Confirmed 08/25/21] omega-3 acid ethyl esters 2 cap PO BID 08/25/21 [History Confirmed 08/25/21] omeprazole 20 mg PO BID 08/25/21 [History Confirmed 08/25/21] pioglitazone 15 mg PO QAM 08/25/21 [History Confirmed 08/25/21] rosuvastatin 10 mg PO QAM 08/25/21 [History Confirmed 08/25/21] sitagliptin [Januvia] 100 mg PO QAM 08/25/21 [History Confirmed 08/25/21] Transfer Discharge Sum: Hosp Hospital Course Hospital course: Marjan Gee is a 70 year old female who presented to the emergency department on 08/24/21 with acute abdominal pain that started around 3:00 p.m. that day. She was also experiencing nausea and vomiting. She takes naproxen for chronic back pain and used to be a smoker but quit 2 months ago. Work-up in the ER showed evidence of a perforated gastric ulcer. She was taken urgently to the OR and underwent a laparoscopic repair of gastric ulcer with omental Jude patch and laparoscopic drainage of intra-abdominal abscess by Dr. Villafana that evening. She was started on IV Zosyn and Micafungin. She was also treated with a Protonix drip. An NG tube was placed and she was made NPO and started on IV fluids. She was found to be very drowsy following anesthesia, although was able to follow commands and answer questions. By my assessment at 11:45 am, she was not verbal, unable to
== END 2021-08-25 16:40 | disposition short-term general hospital (02) | DRG 326 ==
LOC: ANHED 19:19 → ANHSURGERY 19:23 → ANHIMU 08-25 03:03
PROVIDERS: Admitting Provider Surgery; Emergency Provider Emergency Medicine; PCP Physician Assistant; Visit Provider Internal Medicine
PROC: 0DQ64ZZ Repair Stomach, Percutaneous Endoscopic Approach (ICD-10-PCS; CPT 43659; principal; 2021-08-24 20:00)
DX: K25.1 Acute gastric ulcer with perforation (principal); I63.9 Cerebral infarction, unspecified; G81.94 Hemiplegia, unspecified affecting left nondominant side; R41.82 Altered mental status, unspecified; E11.65 Type 2 diabetes mellitus with hyperglycemia; J44.9 Chronic obstructive pulmonary disease, unspecified; I10 Essential (primary) hypertension; K21.9 Gastro-esophageal reflux disease without esophagitis; I73.9 Peripheral vascular disease, unspecified; E78.5 Hyperlipidemia, unspecified; I65.29 Occlusion and stenosis of unspecified carotid artery; M47.816 Spondylosis without myelopathy or radiculopathy, lumbar region; F17.210 Nicotine dependence, cigarettes, uncomplicated; Z79.1 Long term (current) use of non-steroidal anti-inflammatories (NSAID); Z90.49 Acquired absence of other specified parts of digestive tract; E66.9 Obesity, unspecified; Z68.31 Body mass index [BMI] 31.0-31.9, adult
CPT/HCPCS: 36415; 70450; 70496; 70498; 74177; 80048; 80053; 81001; 82948; 83605; 83690; 85025; 85027; 94640; 96361; 96365; 96375; 96376; 99285; A9270; C9113; J0131; J0330; J1100; J1650; J1815; J2248; J2270; J2370; J2405; J2543; J2704; J2710; J3010; J7030; J7060; J7120; Q9967